=== PATIENT | female | born 1970 | race Caucasian/White ===

== ENCOUNTER 2017-08-08 12:28 | Emergency (ER) | payer SELFPAY ==
[2017-08-08 12:30] VITALS: BP 135/72
[2017-08-08 13:06] LABS: Basophils # (auto) 0.1 uL; Monocytes # (auto) 1.1 uL
[2017-08-08 13:09] LABS: Basophils % (auto) 0.8 % (0.0-2.0); Eosinophils # (auto) 0.2 uL; Eosinophils % (auto) 1.9 % (0.0-7.0); Hematocrit 37.2 % (36.0-46.0); Hemoglobin 13.1 g/dL (12.2-16.2); Lymphocytes # (auto) 1.7 uL; Lymphocytes % (auto) 19.1 % (10.0-50.0); Mean Corpuscular Hemoglobin 37.3 pg (28.0-32.0); Mean Corpuscular Hgb Conc. 35.1 g/dL (32.0-36.0); Mean Corpuscular Volume 106.2 fL (80.0-100.0); Monocytes % (auto) 12.5 % (0.0-12.0); Neutrophils # (auto) 5.7 uL; Neutrophils % (auto) 65.7 % (37.0-80.0); Platelet Count (auto) 258 10^3/uL (140-450); Red Cell Distribution Width 14.3 % (11.8-14.3); White Blood Cell 8.7 10^3/uL (4.4-10.8)
[2017-08-08] MEDS ORDERED: SODIUM CHLORIDE 0.9% 1,000 ML IV ONE ×2 (13:17)
[2017-08-08] MEDS ORDERED: THIAMINE 100mg/ml INJ (200mg/2ml VIAL) IV ONE (13:30)
[2017-08-08 13:38] LABS: Albumin 3.3 g/dL (3.4-5.0); BUN/Creatinine Ratio 9.3; Bilirubin, Total 0.3 mg/dL (0.2-1.0); Calcium 7.8 mg/dL (8.5-10.1); Potassium 3.8 mmol/L (3.5-5.1)
== END 2017-08-08 16:38 | disposition left against medical advice (07) ==
LOC: ER 12:28 → EDBD 12:28 → ER 16:38
DX: F10.129 Alcohol abuse with intoxication, unspecified (principal); I10 Essential (primary) hypertension; F17.210 Nicotine dependence, cigarettes, uncomplicated
CPT/HCPCS: 36415; 80053; 80320; 84702; 85025

== ENCOUNTER 2020-12-23 03:29 | Emergency (ER) | payer MEDICAID, OTHER ==
[~2020-12-23] VITALS: Ht 175.3 cm; Wt 49.9 kg
[2020-12-23] MEDS ORDERED: HYDROcodone-ACET 5/325MG TAB PO ONE (05:15)
[2020-12-23 07:50] VITALS: BP 120/71
== END 2020-12-23 07:54 | disposition home or self-care (01) ==
LOC: EDBD 03:29 → ER 03:29
DX: S42.252A Displaced fracture of greater tuberosity of left humerus, initial encounter for closed fracture (principal); E11.9 Type 2 diabetes mellitus without complications; I10 Essential (primary) hypertension; F17.210 Nicotine dependence, cigarettes, uncomplicated; Z86.73 Personal history of transient ischemic attack (TIA), and cerebral infarction without residual deficits; X58.XXXA Exposure to other specified factors, initial encounter; Y93.89 Activity, other specified; Y92.89 Other specified places as the place of occurrence of the external cause; Y99.8 Other external cause status
CPT/HCPCS: 29105; 73030

== ENCOUNTER 2021-11-17 22:00 | Inpatient (IN) | payer MEDICAID ==
[~2021-11-17] VITALS: Ht 160 cm; Wt 49.0 kg
[2021-11-17] MEDS ORDERED: SODIUM CHLORIDE 0.9% 1,000 ML IV ONE ×4 (23:30)
[2021-11-17] MEDS ORDERED: THIAMINE 100mg/ml INJ (200mg/2ml VIAL) IV ONE (23:30)
[2021-11-18 00:57] LABS: Urine Bacteria NONE SEEN /hpf (None Seen); Urine Blood Negative /uL (Negative); Urine Specific Gravity 1.002 (1.001-1.035); Urine WBC <1 /hpf (0 - 5)
[2021-11-18] MEDS ORDERED: MORPHINE SULFATE 4 MG/ML SYR/VIAL IV ONE (01:00)
[2021-11-18] MEDS ORDERED: ONDANSETRON HCL 4 MG/2 ML VIAL IV ONE (01:00)
[2021-11-18 02:07] LABS: Basophils # (auto) 0.1 10 ^3/uL (0-0.2); Basophils % (auto) 0.4 % (0.0-2.0); Eosinophils # (auto) 0.1 10 ^3/uL (0-0.8); Eosinophils % (auto) 0.4 % (0.0-7.0); Hematocrit 42.7 % (36.0-46.0); Hemoglobin 14.6 g/dL (12.2-16.2); Lymphocytes # (auto) 1.1 10 ^3/uL (0.4-5.4); Lymphocytes % (auto) 8.1 % (10.0-50.0); Mean Corpuscular Hgb Conc. 34.1 g/dL (32.0-36.0); Mean Corpuscular Volume 111.4 fL (80.0-100.0); Monocytes # (auto) 1.3 10 ^3/uL (0-1.3); Monocytes % (auto) 9.9 % (0.0-12.0); Neutrophils # (auto) 10.9 10 ^3/uL (1.6-8.6); Neutrophils % (auto) 81.2 % (37.0-80.0); Red Blood Cells 3.83 10^6/uL (4.0-5.20); Red Cell Distribution Width 16.9 % (11.8-14.3); White Blood Cell 13.5 10^3/uL (4.4-10.8)
[2021-11-18 02:31] LABS: Albumin 2.8 g/dL (3.4-5.0); Calcium 7.8 mg/dL (8.5-10.1); Potassium 3.1 mmol/L (3.5-5.1)
[2021-11-18 02:33] LABS: BUN/Creatinine Ratio 14.6
[2021-11-18 02:36] LABS: Bilirubin, Total 0.4 mg/dL (0.2-1.0); Total Protein 5.5 g/dL (6.4-8.2)
[2021-11-18 03:19] LABS: INR 1.09 (0.9-1.15); Partial Thromboplastin Time 27.2 sec (24.6-33.4)
[2021-11-18] MEDS ORDERED: KETOROLAC TROMETH 30 MG/ML 1ML VIAL IV ONE (04:15)
[2021-11-18] MEDS ORDERED: ALBUMIN 25% 50 ML IV ONE (04:30)
[2021-11-18] MEDS ORDERED: hydrALAZINE HCL 20 MG/ML VL IV PRN (04:30)
[2021-11-18] MEDS ORDERED: ONDANSETRON HCL 4 MG/2 ML VIAL IV PRN (04:30)
[2021-11-18] MEDS ORDERED: DOCUSATE SOD 100 MG CAP PO PRN (04:30)
[2021-11-18] MEDS ORDERED: IBUPROFEN 400 MG TAB PO PRN (04:30)
[2021-11-18] MEDS ORDERED: cefTRIAXone 1GM/50ML D5W 50 ML IV ONE (04:30)
[2021-11-18] MEDS: POTASSIUM CHL 20MEQ/100ML 100 ML IV SCH ×2 (04:55→06:53)
[2021-11-18] MEDS: SODIUM CHLORIDE 0.9% 1,000 ML IV SCH ×2 (04:55→21:10)
[2021-11-18 04:58] LABS: Basophils # (auto) 0 10 ^3/uL (0-0.2); Eosinophils # (auto) 0 10 ^3/uL (0-0.8); Lymphocytes # (auto) 1.2 10 ^3/uL (0.4-5.4)
[2021-11-18 05:00] LABS: Basophils % (auto) 0.3 % (0.0-2.0); Eosinophils % (auto) 0.3 % (0.0-7.0); Hematocrit 40.5 % (36.0-46.0); Hemoglobin 14.1 g/dL (12.2-16.2); Lymphocytes % (auto) 10.9 % (10.0-50.0); Mean Corpuscular Hgb Conc. 34.9 g/dL (32.0-36.0); Mean Corpuscular Volume 111.9 fL (80.0-100.0); Monocytes # (auto) 1.3 10 ^3/uL (0-1.3); Neutrophils # (auto) 8.2 10 ^3/uL (1.6-8.6); Neutrophils % (auto) 76.5 % (37.0-80.0); Nucleated Red Blood Cells % 0.1 %; Red Blood Cells 3.62 10^6/uL (4.0-5.20); Red Cell Distribution Width 16.4 % (11.8-14.3); White Blood Cell 10.7 10^3/uL (4.4-10.8)
[2021-11-18 05:19] LABS: Albumin 2.7 g/dL (3.4-5.0); Calcium 7.3 mg/dL (8.5-10.1); Potassium 3.3 mmol/L (3.5-5.1)
[2021-11-18 05:22] LABS: BUN/Creatinine Ratio 10.2; Bilirubin, Total 0.4 mg/dL (0.2-1.0); Total Protein 5.9 g/dL (6.4-8.2)
[2021-11-18] MEDS: AZITHROMYCIN 500MG/ 250ML 250 ML IV SCH (06:44)
[2021-11-18] MEDS ORDERED: MORPHINE SULFATE INJ 2 MG/ml SYRG IV ONE (10:30)
[2021-11-18] MEDS: FAMOTIDINE (10MG/ML) 2ML VL IV SCH (10:33)
[2021-11-18] MEDS: FOLIC ACID 1 MG TAB PO SCH (10:34)
[2021-11-18] MEDS: THIAMINE HCL 100 MG TAB PO SCH (10:34)
[2021-11-18] MEDS: ENOXAPARIN SOD 30 MG/0.3 ML SYRINGE SC SCH (10:34)
[2021-11-18] MEDS: MULTIPLE VITAMIN TAB PO SCH (10:37)
[2021-11-18] MEDS ORDERED: POTASSIUM EFFERVESENT TAB 25 MEQ GT ONE (10:45)
[2021-11-18] MEDS: MORPHINE SULFATE INJ 2 MG/ml SYRG IV PRN (16:38)
[2021-11-18] MEDS: cefTRIAXone 1GM/50ML D5W 50 ML IV SCH (23:58)
[2021-11-19] MEDS: MORPHINE SULFATE INJ 2 MG/ml SYRG IV PRN
[2021-11-19 04:55] VITALS: BP 132/76
[2021-11-19 05:11] LABS: Basophils # (auto) 0.1 10 ^3/uL (0-0.2); Eosinophils # (auto) 0.1 10 ^3/uL (0-0.8); Monocytes # (auto) 1.5 10 ^3/uL (0-1.3)
[2021-11-19 05:14] LABS: Basophils % (auto) 0.8 % (0.0-2.0); Eosinophils % (auto) 1.3 % (0.0-7.0); Hematocrit 38.1 % (36.0-46.0); Hemoglobin 13.1 g/dL (12.2-16.2); Lymphocytes # (auto) 1.1 10 ^3/uL (0.4-5.4); Lymphocytes % (auto) 12.1 % (10.0-50.0); Mean Corpuscular Hemoglobin 38.2 pg (28.0-32.0); Mean Corpuscular Hgb Conc. 34.4 g/dL (32.0-36.0); Mean Corpuscular Volume 111.1 fL (80.0-100.0); Monocytes % (auto) 16.2 % (0.0-12.0); Neutrophils # (auto) 6.4 10 ^3/uL (1.6-8.6); Neutrophils % (auto) 69.6 % (37.0-80.0); Red Blood Cells 3.43 10^6/uL (4.0-5.20); White Blood Cell 9.2 10^3/uL (4.4-10.8)
[2021-11-19 05:32] LABS: Albumin 2.7 g/dL (3.4-5.0); Calcium 8.2 mg/dL (8.5-10.1); Potassium 3.6 mmol/L (3.5-5.1)
[2021-11-19 05:35] LABS: BUN/Creatinine Ratio 11.9; Bilirubin, Total 0.6 mg/dL (0.2-1.0); Total Protein 5.5 g/dL (6.4-8.2)
[2021-11-19] MEDS: AZITHROMYCIN 500MG/ 250ML 250 ML IV SCH (06:33)
[2021-11-19] MEDS: FAMOTIDINE (10MG/ML) 2ML VL IV SCH (09:27)
[2021-11-19] MEDS: MULTIPLE VITAMIN TAB PO SCH (09:27)
[2021-11-19] MEDS: ENOXAPARIN SOD 30 MG/0.3 ML SYRINGE SC SCH (09:27)
[2021-11-19] MEDS: FOLIC ACID 1 MG TAB PO SCH (09:27)
[2021-11-19] MEDS: THIAMINE HCL 100 MG TAB PO SCH (09:27)
[2021-11-19] MEDS: SODIUM CHLORIDE 0.9% 1,000 ML IV SCH (13:54)
[2021-11-19] MEDS ORDERED: ceFAZolin 1GM/50ML 50 ML IV ONE (14:08)
[2021-11-19] MEDS ORDERED: fentaNYL CITRATE 100 MCG/2 ML VL ONE (14:10)
[2021-11-19] MEDS ORDERED: HYDROmorphone HCL 2 MG/ML VL/or syr ONE (14:10)
[2021-11-19] MEDS ORDERED: ONDANSETRON HCL 4 MG/2 ML VIAL ONE (14:10)
[2021-11-19] MEDS ORDERED: SODIUM CHLORIDE LOCK 20 ML ONE (14:10)
[2021-11-19] MEDS ORDERED: MIDAZOLAM HCL 2MG/2ML 2ml VIAL (1mg/ml) ONE (14:10)
[2021-11-19] MEDS ORDERED: PROPOFOL 10 MG/ML 20 ML IV ONE (14:10)
[2021-11-19] MEDS ORDERED: BUPIVACAINE W/ EPINEPH 0.5% INJ 50ML MDV IJ ONE (14:22)
[2021-11-19] MEDS ORDERED: HYDROcodone-ACET 5/325MG TAB PO PRN (15:45)
[2021-11-19] MEDS ORDERED: METOCLOPRAMIDE HCL 5MG/ml INJ 2ml VIAL IV PRN (16:00)
[2021-11-19] MEDS ORDERED: KETOROLAC TROMETH 30 MG/ML 1ML VIAL IV ONE (16:00)
[2021-11-19] MEDS ORDERED: HYDROmorphone HCL 2 MG/ML VL/or syr IV PRN ×2 (16:00)
[2021-11-19] MEDS ORDERED: MORPHINE SULFATE 4 MG/ML SYR/VIAL IV PRN (16:00)
[2021-11-19 17:25] VITALS: BP 111/71
[2021-11-19 17:40] VITALS: BP 112/79
[2021-11-19] MEDS ORDERED: LACTATED RINGER'S 1,000 ML IV ONE (19:00)
[2021-11-19] MEDS ORDERED: LORazepam 2MG/ML-1ML VIAL IM ONE ×2 (19:00→20:00)
[2021-11-19 20:00] VITALS: BP 122/76
[2021-11-19] MEDS: cefTRIAXone 1GM/50ML D5W 50 ML IV SCH (21:00)
[2021-11-19 23:00] VITALS: BP 137/80
[2021-11-20] VITALS (16 sets, daily range): BP systolic 109–141; BP diastolic 66–88
[2021-11-20 05:14] LABS: Basophils # (auto) 0 10 ^3/uL (0-0.2); Basophils % (auto) 0.1 % (0.0-2.0); Eosinophils # (auto) 0 10 ^3/uL (0-0.8); Hematocrit 32.8 % (36.0-46.0); Hemoglobin 11.2 g/dL (12.2-16.2); Lymphocytes # (auto) 0.6 10 ^3/uL (0.4-5.4); Lymphocytes % (auto) 5.3 % (10.0-50.0); Mean Corpuscular Hemoglobin 38.1 pg (28.0-32.0); Mean Corpuscular Hgb Conc. 34.2 g/dL (32.0-36.0); Mean Corpuscular Volume 111.3 fL (80.0-100.0); Monocytes # (auto) 1.7 10 ^3/uL (0-1.3); Monocytes % (auto) 15.7 % (0.0-12.0); Neutrophils # (auto) 8.5 10 ^3/uL (1.6-8.6); Neutrophils % (auto) 78.9 % (37.0-80.0); Red Blood Cells 2.94 10^6/uL (4.0-5.20); White Blood Cell 10.8 10^3/uL (4.4-10.8)
[2021-11-20 05:34] LABS: Potassium 3.6 mmol/L (3.5-5.1)
[2021-11-20 05:38] LABS: Albumin 2.5 g/dL (3.4-5.0); BUN/Creatinine Ratio 16.3
[2021-11-20 05:43] LABS: Bilirubin, Total 0.5 mg/dL (0.2-1.0); Total Protein 5.3 g/dL (6.4-8.2)
[2021-11-20] MEDS: SODIUM CHLORIDE 0.9% 1,000 ML IV SCH (06:30)
[2021-11-20] MEDS: AZITHROMYCIN 500MG/ 250ML 250 ML IV SCH (07:00)
[2021-11-20] MEDS: ENOXAPARIN SOD 30 MG/0.3 ML SYRINGE SC SCH (09:48)
[2021-11-20] MEDS: THIAMINE HCL 100 MG TAB PO SCH (09:48)
[2021-11-20] MEDS: FAMOTIDINE (10MG/ML) 2ML VL IV SCH (09:48)
[2021-11-20] MEDS: FOLIC ACID 1 MG TAB PO SCH (09:48)
[2021-11-20] MEDS: MULTIPLE VITAMIN TAB PO SCH (09:49)
[2021-11-20] MEDS ORDERED: chlordiazePOXIDE HCL 25 MG CAP PO PRN (12:30)
[2021-11-20] MEDS: LORazepam 0.5 MG TAB PO PRN (13:29)
[2021-11-20] MEDS: cefTRIAXone 1GM/50ML D5W 50 ML IV SCH (21:00)
[2021-11-21 04:00] VITALS: BP 114/78
[2021-11-21 05:31] VITALS: BP 114/78
[2021-11-21] MEDS: AZITHROMYCIN 500MG/ 250ML 250 ML IV SCH (07:00)
[2021-11-21 08:00] VITALS: BP 111/75
[2021-11-21] MEDS: FOLIC ACID 1 MG TAB PO SCH (10:09)
[2021-11-21] MEDS: THIAMINE HCL 100 MG TAB PO SCH (10:09)
[2021-11-21] MEDS: LORazepam 0.5 MG TAB PO PRN (10:09)
[2021-11-21] MEDS: MULTIPLE VITAMIN TAB PO SCH (10:09)
[2021-11-21] MEDS: FAMOTIDINE (10MG/ML) 2ML VL IV SCH (10:09)
[2021-11-21] MEDS: HYDROcodone-ACET 5/325MG TAB PO PRN ×2 (10:09→15:51)
[2021-11-21] MEDS: ENOXAPARIN SOD 30 MG/0.3 ML SYRINGE SC SCH (10:11)
[2021-11-21 12:00] VITALS: BP 97/47
[2021-11-21] MEDS: SODIUM CHLORIDE 0.9% 1,000 ML IV SCH ×2 (15:08→15:50)
[2021-11-21 16:00] VITALS: BP 86/62
[2021-11-21 20:00] VITALS: BP 98/61
[2021-11-21] MEDS: cefTRIAXone 1GM/50ML D5W 50 ML IV SCH (21:10)
[2021-11-22] MEDS: HYDROcodone-ACET 5/325MG TAB PO PRN ×2 (04:26→14:46)
[2021-11-22] MEDS: AZITHROMYCIN 500MG/ 250ML 250 ML IV SCH (06:27)
[2021-11-22 08:00] VITALS: BP 98/59
[2021-11-22] MEDS: SODIUM CHLORIDE 0.9% 1,000 ML IV SCH (10:00)
[2021-11-22] MEDS: FAMOTIDINE (10MG/ML) 2ML VL IV SCH (10:03)
[2021-11-22] MEDS: FOLIC ACID 1 MG TAB PO SCH (10:03)
[2021-11-22] MEDS: THIAMINE HCL 100 MG TAB PO SCH (10:03)
[2021-11-22] MEDS: MULTIPLE VITAMIN TAB PO SCH (10:03)
[2021-11-22] MEDS: ENOXAPARIN SOD 30 MG/0.3 ML SYRINGE SC SCH (10:03)
[2021-11-22] MEDS ORDERED: HYDR-4902 PO (10:58)
[2021-11-22] MEDS ORDERED: ASPI-325 PO (10:58)
[2021-11-22] MEDS ORDERED: DOCU-94 PO (10:58)
[2021-11-22 11:05] VITALS: BP 98/59
[2021-11-22 11:31] VITALS: BP 108/82
[2021-11-22 15:31] VITALS: BP 107/69
== END 2021-11-22 16:10 | disposition home or self-care (01) | DRG 912 ==
LOC: EDBD 22:00 → ER 22:03 → OVERFLOW 11-18 10:36 → DOU IN ICU 11-19 16:54
PROVIDERS: ADMIT Internal Medicine; ATTEND Internal Medicine
PROC: 0QS606Z Reposition Right Upper Femur with Intramedullary Internal Fixation Device, Open Approach (ICD-10-PCS; principal; 2021-11-19 14:38)
DX: S72.141A Displaced intertrochanteric fracture of right femur, initial encounter for closed fracture (principal); S32.9XXA Fracture of unspecified parts of lumbosacral spine and pelvis, initial encounter for closed fracture; J18.9 Pneumonia, unspecified organism; E44.1 Mild protein-calorie malnutrition; E88.09 Other disorders of plasma-protein metabolism, not elsewhere classified; Z20.822 Contact with and (suspected) exposure to COVID-19; E11.9 Type 2 diabetes mellitus without complications; F17.210 Nicotine dependence, cigarettes, uncomplicated; I10 Essential (primary) hypertension; W10.9XXA Fall (on) (from) unspecified stairs and steps, initial encounter; S00.83XA Contusion of other part of head, initial encounter; F10.129 Alcohol abuse with intoxication, unspecified; Z86.73 Personal history of transient ischemic attack (TIA), and cerebral infarction without residual deficits; Y93.89 Activity, other specified; Y92.89 Other specified places as the place of occurrence of the external cause; Y99.8 Other external cause status; Z68.1 Body mass index [BMI] 19.9 or less, adult
CPT/HCPCS: 36415; 73502; 76000; 80053; 80320; 81001; 84484; 85025; 85610; 85730; 86850; 86900; 86901; 87040; 87081; 96361; 96365; 96367; 96375; 97110; 97116; 97530; A4565; G0378; J0690; J0696; J1885; J2250; J2405; J2704; J3480; J3490